=== PATIENT | female | born 1995 | race American Indian/Alaskan Native ===

== ENCOUNTER 2020-05-23 06:16 | Emergency (ER) | payer SELFPAY ==
[2020-05-23 06:21] VITALS: BP 130/84
[2020-05-23 07:12] LABS: Bacteria,Urine 1+ /HPF (Negative); Bilirubin,Urine NEG (Negative); Blood,Urine NEG (Negative); Color,Urine Yellow (Yellow); Mucus,Urine FEW /HPF; Protein,Urine <15 mg/dL mg/dL (Negative); Urobilinogen,Urine < 2.0 mg/dL (<2.0)
--- NOTE | 2020-05-23 09:10 | Emergency Department Report ---
ED Female HPI - General Chief complaint: Urogenital-Female Stated complaint: POSS UTI Time Seen by Provider: 05/23/20 08:53 Source: patient Mode of arrival: Ambulatory Limitations: No Limitations - History of Present Illness MD Complaint: vaginal discharge -: Gradual, days(s) (3) Severity: mild Severity scale (0 -10): 0 Consistency: constant Improves with: none Worsens with: none Are you Now?: No Associated Symptoms: vaginal discharge. denies: abdominal pain, nausea/vomiting, fever/chills - Related Data Previous Rx's Medication Instructions Recorded Last Taken Type Fluconazole [Diflucan TAB] 200 mg PO ONCE #2 tablet 05/23/20 Unknown Rx metroNIDAZOLE [Flagyl] 500 mg PO Q12HR #14 tab 05/23/20 Unknown Rx Allergies Allergy/AdvReac Type Severity Reaction Status Date / Time No Known Allergies Allergy Unverified 05/23/20 06:21 ED Review of Systems ROS: Stated complaint: POSS UTI Other details as noted in HPI Comment: All other systems reviewed and negative Genitourinary: as per HPI ED Past Medical Hx - Medications Home Medications: Home Medications Medication Instructions Recorded Confirmed Last Taken Type Fluconazole [Diflucan TAB] 200 mg PO ONCE #2 tablet 05/23/20 Unknown Rx metroNIDAZOLE [Flagyl] 500 mg PO Q12HR #14 tab 05/23/20 Unknown Rx ED Physical Exam - General Limitations: No Limitations General appearance: alert, in no apparent distress - Head Head exam: Present: atraumatic, normocephalic - Eye Eye exam: Present: normal appearance - ENT ENT exam: Present: mucous membranes moist - Neck Neck exam: Present: normal inspection - Respiratory Respiratory exam: Present: normal lung sounds bilaterally. Absent: respiratory distress - Cardiovascular Cardiovascular Exam: Present: regular rate, normal rhythm. Absent: systolic murmur, diastolic murmur, rubs, gallop - GI/Abdominal GI/Abdominal exam: Present: soft, normal bowel sounds. Absent: distended, tenderness, guarding, rebound - External exam: Present: normal external exam Speculum exam: Present: vaginal discharge (copious white) Bi-manual exam: Present: other (roll capper: Mela, medic) - Extremities Exam Extremities exam: Present: normal inspection - Back Exam Back exam: Present: normal inspection - Neurological Exam Neurological exam: Present: alert, oriented X3 - Psychiatric Psychiatric exam: Present: normal affect, normal mood - Skin Skin exam: Present: warm, dry, intact, normal color. Absent: rash ED Course Vital Signs 05/23/20 06:20 Temperature 98.2 F Pulse Rate 77 Respiratory 16 Rate Blood Pressure 130/84 [Left] O2 Sat by Pulse 97 Oximetry ED Medical Decision Making - Lab Data Lab Results 05/23/20 05/23/20 Range/Units Unknown Unknown Urine Color Yellow (Yellow) Urine Turbidity Clear (Clear) Urine pH 7.0 (5.0-7.0) Ur Specific [place] 1.021 (1.003-1.030) Urine Protein <15 mg/dl (Negative) mg/dL Urine Glucose (UA) Neg (Negative) mg/dL Urine Ketones Neg (Negative) mg/dL Urine Blood Neg (Negative) Urine Nitrite Neg (Negative) Urine Bilirubin Neg (Negative) Urine Urobilinogen < 2.0 (<2.0) mg/dL Ur Leukocyte Esterase Lg (Negative) Urine WBC (Auto) 8.0 H (0.0-6.0) /HPF Urine RBC (Auto) 2.0 (0.0-6.0) /HPF U Epithel Cells (Auto) 5.0 (0-13.0) /HPF Urine Bacteria (Auto) 1+ (Negative) /HPF Urine Mucus Few /HPF Urine HCG, Qual Negative (Negative) - Medical Decision Making Patient presents with vaginal discharge x3 days, concerned that she could have an STI and wanted to get checked. No abdominal pain or fevers. Will perform pelvic exam. Abdomen benign. We will also empirically treat. Wet prep is positive for clue cells, few yeast, few trichomonas. Patient will be placed on Flagyl, Diflucan in addition to empiric Rocephin and azithromycin here. Advised to abstain from intercourse and make sure the partners are treated. - Differential Diagnosis STI, UTI Critical care attestation.: If time is entered above; I have spent that time in minutes in the direct care of this critically ill patient, excluding procedure time. ED Disposition Clinical Impression: Bacterial vaginitis, Trichomoniasis, Yeast vaginitis Disposition: DC-01 TO HOME OR SELFCARE Is pt being admited?: No Condition: Good Instructions: Bacterial Vaginosis (ED), Vaginal Yeast Infection, Adult, Bacterial Vaginosis, Trichomoniasis Prescriptions: Fluconazole [Diflucan TAB] 200 mg PO ONCE #2 tablet metroNIDAZOLE [Flagyl] 500 mg PO Q12HR #14 tab Referrals: PRIMARY CARE, [Primary Care Provider] - 3-5 Days Forms: STI Treatment and Prevention Time of Disposition: 10:23
[2020-05-23] MEDS ORDERED: LIDOCAINE-MPF (1%) 10 MG/1 ML VIAL 5 ML INFILTRATI ONE (09:37)
[2020-05-23] MEDS ORDERED: AZITHROMYCIN 250 MG TAB PO ONE (09:37)
[2020-05-23 10:17] LABS: HCG Qualitative,Urine Negative (Negative)
== END 2020-05-23 11:37 | disposition home or self-care (01) ==
LOC: ED 06:16
DX: N76.0 Acute vaginitis (principal); A59.9 Trichomoniasis, unspecified; B37.3 Candidiasis of vulva and vagina; B96.89 Other specified bacterial agents as the cause of diseases classified elsewhere; Z79.899 Other long term (current) drug therapy
CPT/HCPCS: 81001; 81025; 87086; 87210; 87591; 96372; 99284; J0696

== ENCOUNTER 2020-11-04 14:11 | Emergency (ER) | payer SELFPAY ==
[2020-11-04 16:04] VITALS: BP 121/80
--- NOTE | 2020-11-04 16:04 | Emergency Department Report ---
ED General Adult HPI - General Chief complaint: Sore Throat Stated complaint: THROAT HURTS Time Seen by Provider: 11/04/20 16:03 Source: patient Mode of arrival: Ambulatory Limitations: No Limitations - History of Present Illness Initial comments: 25-year-old female presents to the ER today with complaints of 1 week history of sore throat. Patient reports pain with swallowing but no drooling or difficulty opening her mouth. She reports associated intermittent generalized body aches and headache. She denies any coughing, rhinorrhea nasal congestion fever or chills. She denies any apparent ill contacts. She denies any significant past medical history. MD Complaint: Sore throat -: Gradual (1 week ) - Related Data Previous Rx's Medication Instructions Recorded Last Taken Type metroNIDAZOLE [Flagyl] 500 mg PO Q12HR #14 tab 05/23/20 Unknown Rx Amoxicillin [Trimox CAP] 500 mg PO Q8H #20 capsule 11/04/20 Unknown Rx Fluconazole [Diflucan TAB] 200 mg PO ONCE #2 tablet 11/04/20 Unknown Rx Ibuprofen [Motrin] 800 mg PO Q8HR PRN #30 tablet 11/04/20 Unknown Rx methylPREDNISolone [Medrol 4MG 4 mg PO DAILY #1 tab.ds.pk 11/04/20 Unknown Rx DOSEPAK (21 tabs)] Allergies Allergy/AdvReac Type Severity Reaction Status Date / Time No Known Allergies Allergy Unverified 05/23/20 06:21 ED Review of Systems ROS: Stated complaint: THROAT HURTS Other details as noted in HPI Comment: All other systems reviewed and negative Constitutional: denies: chills, fever Eyes: denies: eye pain, eye discharge, vision change ENT: throat pain. denies: dental pain, hearing loss, epistaxis, congestion Respiratory: denies: cough, shortness of breath, SOB with exertion, SOB at rest, wheezing Cardiovascular: denies: chest pain, palpitations Endocrine: no symptoms reported Gastrointestinal: denies: abdominal pain, nausea, vomiting, diarrhea, constipation, hematemesis, hematochezia Genitourinary: denies: urgency, dysuria, frequency, hematuria, discharge, abnormal menses, dyspareunia Musculoskeletal: myalgia. denies: back pain, joint swelling, arthralgia Neurological: headache. denies: weakness, numbness, paresthesias, confusion, abnormal gait, vertigo Psychiatric: denies: anxiety, depression, auditory hallucinations, visual hallucinations, homicidal thoughts, suicidal thoughts Hematological/Lymphatic: denies: easy bleeding, easy bruising, swollen glands ED Past Medical Hx - Past Medical History Previous Medical History?: No - Surgical History Past Surgical History?: No - Social History Smoking Status: Former Smoker Substance Use Type: Alcohol - Medications Home Medications: Home Medications Medication Instructions Recorded Confirmed Last Taken Type metroNIDAZOLE [Flagyl] 500 mg PO Q12HR #14 tab 05/23/20 Unknown Rx Amoxicillin [Trimox CAP] 500 mg PO Q8H #20 capsule 11/04/20 Unknown Rx Fluconazole [Diflucan TAB] 200 mg PO ONCE #2 tablet 11/04/20 Unknown Rx Ibuprofen [Motrin] 800 mg PO Q8HR PRN #30 tablet 11/04/20 Unknown Rx methylPREDNISolone [Medrol 4MG 4 mg PO DAILY #1 tab.ds.pk 11/04/20 Unknown Rx DOSEPAK (21 tabs)] ED Physical Exam - General Limitations: No Limitations General appearance: alert, in no apparent distress - Head Head exam: Present: atraumatic, normocephalic, normal inspection - Eye Eye exam: Present: normal appearance, PERRL, EOMI Pupils: Present: normal accommodation - Expanded ENT Exam Expanded Mouth exam: Absent: drooling, trismus, muffled voice, tongue normal, tongue elevation, laceration Throat exam: Positive: tonsillar erythema, tonsillomegaly, tonsillar exudate. Negative: R peritonsillar mass, L peritonsillar mass - Neck Neck exam: Present: normal inspection, full ROM, lymphadenopathy (anterior cervical ). Absent: meningismus - Respiratory Respiratory exam: Present: normal lung sounds bilaterally. Absent: respiratory distress, wheezes, rales, rhonchi - Cardiovascular Cardiovascular Exam: Present: regular rate, normal rhythm, normal heart sounds - Neurological Exam Neurological exam: Present: alert, oriented X3, CN II-XII intact, normal gait - Psychiatric Psychiatric exam: Present: normal affect, normal mood ED Course Vital Signs 11/04/20 15:35 Temperature 98.9 F Pulse Rate 76 Respiratory 18 Rate Blood Pressure 121/80 O2 Sat by Pulse 98 Oximetry ED Medical Decision Making - Medical Decision Making 25-year-old female presents to the ER today with complaints of 1 week history of sore throat. Patient reports pain with swallowing but no drooling or difficulty opening her mouth. She reports associated intermittent generalized body aches and headache. She denies any coughing, rhinorrhea nasal congestion fever or chills. She denies any apparent ill contacts. She denies any significant past medical history. Exam shows exudative tonsillitis concerning for possible strep infection. She has no trismus, drooling, or voice change on exam. She is tolerating her secretions well. She has no stridor and she is not in any respiratory distress. No evidence of peritonsillar abscess or Irving's angina. She is not toxic or ill-appearing and is not in any significant distress. Discussed suspected diagnosis and treatment plan with patient. She will be discharged home with a prescription for antibiotics as well as some steroids to help with the swelling and Motrin to help with pain. Encouraged that she drinks lots of fluids and do a soft diet and close follow-up with her primary care doctor. Patient expressed understanding of instructions and agree with plan. Patient was stable at time of discharge. Critical care attestation.: If time is entered above; I have spent that time in minutes in the direct care of this critically ill patient, excluding procedure time. ED Disposition Clinical Impression: Exudative tonsillitis Disposition: DC-01 TO HOME OR SELFCARE Is pt being admited?: No Does the pt Need Aspirin: No Condition: Stable Instructions: Tonsillitis, Strep Throat, Adult, [id number] Additional Instructions: Recommend that you start the amoxicillin today and take it to completion. Also take the Motrin and the Medrol Dosepak as prescribed. Take the Diflucan after you finish taking the amoxicillin. I recommend that you drink lots of fluids to maintain hydration and recommend doing a soft diet for the next 2 to 3 days. Follow-up with your primary care doctor. Return to the ER if your symptoms changes or worsens in any way. Prescriptions: Fluconazole [Diflucan TAB] 200 mg PO ONCE #2 tablet methylPREDNISolone [Medrol 4MG DOSEPAK (21 tabs)] 4 mg PO DAILY #1 tab.ds.pk Ibuprofen [Motrin] 800 mg PO Q8HR PRN #30 tablet PRN Reason: pain Amoxicillin [Trimox CAP] 500 mg PO Q8H #20 capsule Referrals: VANNESSA FRANCISCO MD [Staff Physician] - 3-5 Days Forms: Work/School Release Form(ED) Time of Disposition: 16:49
[2020-11-04] MEDS ORDERED: dexAMETHasone 20 MG/5 ML VIAL IM ONE (16:45)
[2020-11-04] MEDS ORDERED: KETOROLAC 60 MG/2 ML INJ IM ONE (16:45)
== END 2020-11-04 17:33 | disposition home or self-care (01) ==
LOC: ED 14:11
DX: J03.90 Acute tonsillitis, unspecified (principal); Z87.891 Personal history of nicotine dependence; Z79.899 Other long term (current) drug therapy
CPT/HCPCS: 96372; 99282; J1100; J1885